=== PATIENT | female | born 1985 | race Caucasian/White ===

== ENCOUNTER 2017-07-25 13:51 | Emergency (ER) | payer MEDICAID ==
[~2017-07-25] VITALS: Ht 165.1 cm; Wt 104.5 kg
[2017-07-25 14:02] VITALS: BP 132/90; TEMP 98.9
[2017-07-25] MEDS ORDERED: AMOXICILLIN 50500 MG PO (14:55)
[2017-07-25 15:10] VITALS: PULSE 92
== END 2017-07-25 15:12 | disposition home or self-care (01) ==
LOC: COL.ER 13:51
DX: J02.0 Streptococcal pharyngitis (principal); F17.210 Nicotine dependence, cigarettes, uncomplicated

== ENCOUNTER 2018-10-01 23:47 | Emergency (ER) | payer MEDICAID ==
[~2018-10-01] VITALS: Ht 162.6 cm; Wt 117.0 kg
[~2018-10-01 23:47] MED LIST: AMOXICILLIN 50500 MG PO; CEPHALEXIN500 M1 PO
[2018-10-01 23:54] VITALS: TEMP 97.7
[2018-10-02] MEDS ORDERED: LEXAPRO20 MG PO (00:48)
[2018-10-02] MEDS ORDERED: ULTRAM 50MG TAB50 MG PO (01:05)
[2018-10-02 01:20] VITALS: BP 129/80; PULSE 90
== END 2018-10-02 01:21 | disposition home or self-care (01) ==
LOC: COL.ER 23:47
DX: T23.261A Burn of second degree of back of right hand, initial encounter (principal); F32.9 Major depressive disorder, single episode, unspecified; Z23 Encounter for immunization; X12.XXXA Contact with other hot fluids, initial encounter; Y92.009 Unspecified place in unspecified non-institutional (private) residence as the place of occurrence of the external cause

== ENCOUNTER 2019-02-17 15:50 | Emergency (ER) | payer MEDICAID ==
[~2019-02-17] VITALS: Ht 165.1 cm; Wt 113.6 kg
[~2019-02-17 15:50] MED LIST changes: +LEXAPRO20 MG PO; +ULTRAM 50MG TAB50 MG PO
[2019-02-17 15:55] VITALS: BP 126/77; TEMP 98.4
[2019-02-17] MEDS ORDERED: ZITHROMAX Z PA250 MG PO (17:37)
[2019-02-17] MEDS ORDERED: PREDNISONE20 MG PO (17:37)
[2019-02-17 18:42] VITALS: PULSE 92
== END 2019-02-17 21:39 | disposition home or self-care (01) ==
LOC: COL.ER 15:50
DX: J40 Bronchitis, not specified as acute or chronic (principal); F17.210 Nicotine dependence, cigarettes, uncomplicated
CPT/HCPCS: J7512

== ENCOUNTER 2019-09-19 13:28 | Inpatient (IN) | payer MEDICAID ==
[2019-09-19] VITALS (33 sets, daily range): BP systolic 125–162; BP diastolic 61–97; PULSE 85–148; TEMP 97.2–98
[~2019-09-19] VITALS: Ht 165.1 cm; Wt 119.5 kg
[~2019-09-19 13:28] MED LIST changes: +PREDNISONE20 MG PO; +ZITHROMAX Z PA250 MG PO
--- NOTE | 2019-09-19 13:43 | NUR ---
1343-G6L3 [address] Jane's taken via wheelchair to LR 6 with complaint of contractions since 1230 today. Reports good FM, Denies LOF or VB. Placed on EFM. BP 142/89 maternal HR 103. Reports "some elevated bp's in office but not too concerning and no symtoms with them." SVE by this RN /-3, PATRICK. Repositioned WR adjusted EFM. Difficulty tracing FHR continued readjusting EFM. Assessment complete.
[2019-09-19 15:20] LABS: BASO % 0.3 % (0.0-2.0); EOS # 0.1 (0.0-0.7); EOS % 0.6 % (0-4.0); GRAN # 8.2 (1.4-6.5); GRAN % 75.3 % (42.2-75.2); HEMATOCRIT 38.7 % (37.0-47.0); HEMOGLOBIN 12.5 g/dl (12.5-16.0); LYMPH # 1.9 (1.2-3.4); LYMPH % 17.6 % (20.0-51.0); MEAN CELL VOLUME 89 fl (80.0-100.0); MEAN CORPUSCULAR HEMOGLOBIN 29 pg (27.0-31.0); MEAN CORPUSCULAR HGB CONC 32 g/dl (33.0-37.0); MEAN PLATELET VOLUME 11.9 fl (7.4-10.4); MONO # 0.6 (0.1-0.6); MONO % 5.6 % (1.7-9.3); PLATELET COUNT 225 K/mm3 (130-400); RED BLOOD COUNT 4.37 M/mm3 (4.10-5.30); REDCELL DISTRIBUTION WIDTH-CV 14.9 % (11.5-14.5)
--- NOTE | 2019-09-19 15:23 | NUR ---
forming process worker spoke with Irma Alfonso with [employer] #[phone], on 09/18/2019 and obtained adoption plan for patient and agency license. Worker advised paperwork that will need to be provided by commercial attorney, Kingston Albert in order for the adoptive parents to discharge with . Irma states she understands and commercial attorney will comply with documents requested. On this date, worker and Irma speak again to clarify legal documents needed for discharge of infant. Irma states that the adoptive parents are leaving today, to travel from [place] to [place]. Worker advises, per infection control, that adoptive parents can enter hospital after being covid screened and will have a room in the and women's unit. Worker advises that adoptive parents cannot leave the hospital once they have arrived, until discharge of infant. Irma advises that this is an open adoption.
[2019-09-19 15:32] LABS: ALBUMIN 3.6 gm/dL (3.5-5.0); BILIRUBIN,TOTAL 0.5 mg/dL (0.0-1.0); CALCIUM 8.8 mg/dL (8.4-10.2); CREATININE, serum 0.45 (0.52-1.25); POTASSIUM 3.7 mmol/L (3.4-5.0)
[2019-09-19 17:10] LABS: COLLECTION METHOD CLEAN CATCH
[2019-09-19 17:17] LABS: MUCOUS Present /lpf; PH 7 (5-8); SQUAMOUS EPITHELIAL 0-2 /hpf; URINE APPEARANCE Clear; URINE BACTERIA Occasional /hpf; URINE BILIRUBIN Negative (NEGATIVE); URINE BLOOD 1+ (NEGATIVE); URINE COLOR Yellow; URINE GLUCOSE Negative (NEGATIVE); URINE KETONE Negative (NEGATIVE); URINE LEUKOCYTE ESTERASE 1+ (NEGATIVE); URINE NITRATE Negative (NEGATIVE); URINE PROTEIN(semi-quant) 1+ (NEGATIVE); URINE UROBILINOGEN Negative (NEGATIVE); URINE WBC 20-50 /hpf
[2019-09-19 17:40] LABS: TRICYCLIC ANTIDEPRESS URINE NEGATIVE
--- NOTE | 2019-09-19 19:13 | NUR ---
1450-Dr. Jane to patient room, SVE by 4-, BB of fluid. orders to admit patient. 1500-IV to Left hand, blood collected and sent to lab. LR infusing per orders nd protocol. 1510-AROM by , [facility] fluid noted. darron care provided. Updated on plan of care. Consents revivewed and signed. 1520-Patient requests epidural. SHENG Sena notified. 1534-Test dose administered by Lazara Gonzalez CRNA see anesthesia record. 1550-FHR with intermittent trancing, RN adjusts EFM, [place]. [address]-[address]red[address] to DD. clear yellow urine. SVE /2.Repositioned WR. 1640-SVE by , Patient does not desire pitocin at this time. MD agrees to monitor one more hour. Repositioned sitting upright in bed. Difficulty tracing FHR, RN frequently readjusting EFM. 1800-SVE no change, Dr. Jane updated, see physician notification. 1810-Patient with 350ml emesis.
--- NOTE | 2019-09-19 20:29 | NUR ---
2028 DR CHOPRA IN ROOM. COMPLETE DILITATION. INSTRUCTED TO PUSH WITH CONTRACTIONS. READIED FOR DELIVERY. KHOURY CATH REMOVED WITH 175CC DARK URINE IN BAG.
--- NOTE | 2019-09-19 20:57 | NUR ---
2056 DELIVERY VIABLE FEMALE OVER 1ST DEGREE LAC. CORD GASES OBTAINED PER DR MARSHALL. CORD STAT ALSO OBTAINED AND TO LAB. IV PULLED OUT DURING DELIVERY. 2100 DEL PLACENTA. FF WITH NO EXCESS VAG BLEEDING NOTED. BABY REMAINS IN ROOM WITH MOM AT THIS TIME.
--- NOTE | 2019-09-19 22:15 | NUR ---
2213 EPID CATH DCD. REG DIET TAKEN. BABY TO NSY PER PTS REQUEST.
--- NOTE | 2019-09-19 23:15 | NUR ---
2315 MOTRIN 800MG PO AND METHERGINE 0.2MG IM GIVEN FOR SOME INCREASED VAG BLEEDING
--- NOTE | 2019-09-19 23:45 | NUR ---
2345 UP TO BR WITH ASSIST AND VOIDED 200CC. PERICARE DONE. AMB TO 208 AND ALEXANDER WELL.
[2019-09-20 02:00] VITALS: BP 114/54; PULSE 76; TEMP 98.4
[2019-09-20 07:54] VITALS: BP 110/76; PULSE 78; TEMP 98.1
[2019-09-20] MEDS ORDERED: IBU800 M1 PO (10:26)
--- NOTE | 2019-09-20 14:02 | NUR ---
8388 REGISTERED RADIOLOGIC TECHNOLOGIST AND ADOPTIVE SPECIALIST AT PATIENTS BEDSIDE TO REVIEW AND SIGN PAPERWORK FOR ADOPTION AT THIS TIME.
--- NOTE | 2019-09-20 15:04 | NUR ---
9417 ALL PAPERWORK SIGNED WITH COIN BOX INSPECTOR AND WAXING MACHINE OPERATOR HELPER. TEMPORARY CUSTODY ORDERS ON BABIES CHART FOR ADPOTION.
--- NOTE | 2019-09-20 15:17 | NUR ---
SW received word of adoption of "Baby Danger Thoris," and went to discuss process with Pt. Pt indicated that she was happy about the adoption and that she felt like the baby and family would fit well together. SW explained process to Pt and arranged to meet with agency criminal justice social worker Irma Alfonso [phone] at 2:00pm. The patients business attorney Kingston Kent would be present via telephone conference. Sw called and confirmed with Agency SW, and ensured that all documentation was received prior to meeting time.
[2019-09-20 15:58] VITALS: BP 122/64; PULSE 76; TEMP 98.1
== END 2019-09-20 16:54 | disposition home or self-care (01) | DRG 806 ==
LOC: LDRO 13:28 → LDR 13:40 → OB 09-20
PROVIDERS: ADMIT Student in an Organized Health Care Education/Training Program
PROC: 10E0XZZ Delivery of Products of Conception, External Approach (ICD-10-PCS; principal; 2019-09-19)
PROC: 0KQM0ZZ Repair Perineum Muscle, Open Approach (ICD-10-PCS; 2019-09-19)
DX: O99.344 Other mental disorders complicating childbirth (principal); O99.324 Drug use complicating childbirth; Z37.0 Single live birth; F32.9 Major depressive disorder, single episode, unspecified; F41.9 Anxiety disorder, unspecified; O99.214 Obesity complicating childbirth; O99.62 Diseases of the digestive system complicating childbirth; O69.1XX0 Labor and delivery complicated by cord around neck, with compression, not applicable or unspecified; K21.9 Gastro-esophageal reflux disease without esophagitis; F12.90 Cannabis use, unspecified, uncomplicated; O70.1 Second degree perineal laceration during delivery; Z3A.39 39 weeks gestation of pregnancy
CPT/HCPCS: J2210; J2590; J7120